=== PATIENT | female | born 1990 | race Two or more races ===

== ENCOUNTER 2021-01-14 21:40 | Observation (INO) | payer OTHER ==
[~2021-01-14] VITALS: Ht 157.5 cm; Wt 73.5 kg
[2021-01-14 22:00] VITALS: BP 119/60
== END 2021-01-14 23:00 | disposition home or self-care (01) ==
LOC: MLD 21:40
PROVIDERS: ADMIT Obstetrics & Gynecology; ATTEND Obstetrics & Gynecology
DX: O62.9 Abnormality of forces of labor, unspecified (principal); Z3A.00 Weeks of gestation of pregnancy not specified; Z53.29 Procedure and treatment not carried out because of patient's decision for other reasons
CPT/HCPCS: 59025; G0378; 81000

== ENCOUNTER 2021-01-31 10:16 | Observation (INO) | payer OTHER, SELFPAY ==
[~2021-01-31] VITALS: Ht 157.5 cm; Wt 74.8 kg
[2021-01-31 10:56] VITALS: BP 108/55
== END 2021-01-31 14:40 | disposition home or self-care (01) ==
LOC: MLD 10:16
PROVIDERS: ADMIT Obstetrics & Gynecology; ATTEND Obstetrics & Gynecology
DX: O47.1 False labor at or after 37 completed weeks of gestation (principal); Z20.822 Contact with and (suspected) exposure to COVID-19; Z3A.38 38 weeks gestation of pregnancy
CPT/HCPCS: 59025; 76805; 81000; 87426; G0378; Q0092; U0003

== ENCOUNTER 2021-02-03 15:36 | Inpatient (IN) | payer OTHER, SELFPAY ==
[~2021-02-03] VITALS: Ht 157.5 cm; Wt 75.3 kg
[2021-02-03] MEDS: LACTATED RINGERS 1,000 ML IV SCH (00:20)
[2021-02-03] MEDS ORDERED: PNV91TAB8 PO (16:29)
[2021-02-03] MEDS ORDERED: OXYTOCIN 10 UNITS/ML VIAL IM SCH (16:30)
[2021-02-03] MEDS ORDERED: LACTATED RINGERS 500 ML IV SCH (16:30)
[2021-02-03] MEDS ORDERED: PROMETHAZINE 25 MG/ML VIAL IVP PRN (16:30)
[2021-02-03] MEDS ORDERED: NALBUPHINE 10 MG/ML AMP IVP PRN (16:30)
[2021-02-03] MEDS ORDERED: MISOPROSTOL 25 MCG TAB VG SCH (16:30)
[2021-02-03] MEDS ORDERED: METHYLERGONOVINE 0.2 MG/ML AMP IM PRN (16:30)
[2021-02-03] MEDS ORDERED: CARBOPROST 250 MCG/ML AMP IM PRN (16:30)
[2021-02-03 18:59] LABS: BASOPHILS % (AUTO) 0.1 % (0.0-2.0); EOSINOPHILS % (AUTO) 0.1 % (0.0-4.0); HEMATOCRIT 38.8 % (36-48); HEMOGLOBIN 13.1 g/dL (12.0-16.0); LYMPHOCYTES # (AUTO) 1.5 K/uL (2.5-16.5); LYMPHOCYTES % (AUTO) 19.7 % (20.5-51.1); MEAN CORPUSCULAR HEMOGLOBIN 30 pg (27-31); MEAN CORPUSCULAR HGB CONC 34 g/dL (33-37); MEAN CORPUSCULAR VOLUME 87.5 fL (80-94); MONOCYTES # (AUTO) 0.5 K/uL (0.8-1.0); MONOCYTES % (AUTO) 6.5 % (1.7-9.3); NEUTROPHILS # (AUTO) 5.7 K/uL (1.8-7.7); NEUTROPHILS % (AUTO) 73.6 % (42.2-75.2); PLATELET COUNT (AUTO) 93 K/uL (140-450); RED BLOOD CELL COUNT(AUTO) 4.43 MIL/uL (4.20-5.40); RED CELL DISTRIBUTION WIDTH 15.5 % (11.6-13.7); WHITE BLOOD COUNT (AUTO) 7.8 K/uL (4.8-10.8)
[2021-02-03 19:17] LABS: APPEARANCE,URINE CLEAR (CLEAR); BILIRUBIN,URINE NEGATIVE (NEGATIVE); BLOOD, URINE NEGATIVE (NEGATIVE); COLOR,URINE YELLOW (YELLOW); LEUKOCYTE ESTERASE ,URINE NEGATIVE (NEGATIVE); NITRITE, URINE NEGATIVE (NEGATIVE); PH,URINE 5.5 (5.0-9.0); UGLUCOSE NEGATIVE (NEGATIVE)
[2021-02-03 19:37] LABS: ALBUMIN 3.1 g/dL (3.4-5.0); ANION GAP 15.7 (8-16); CARBON DIOXIDE 20.9 mmol/L (21-32); CREATININE 0.7 mg/dL (0.6-1.3); POTASSIUM 3.6 mmol/L (3.5-5.1); TOTAL BILIRUBIN 0.7 mg/dL (0.0-1.0)
[2021-02-04] MEDS ORDERED: ROPIVACAINE 0.2%/NS PREMIX 200 ML EPI ONE (04:12)
[2021-02-04] MEDS ORDERED: OXYTOCIN 20 UNITS/LR PREMIX 1,000 ML IV ONE (06:28)
--- NOTE | 2021-02-04 07:09 | NUR ---
PATIENT HAS BEEN SCREENED AND CATEGORIZED LOW NUTRITION RISK. PATIENT WILL BE SEEN WITHIN 7 DAYS OF ADMISSION. 02/09/21 PABLO HOOD MS, RDN
[2021-02-04] MEDS ORDERED: OXYTOCIN 20 UNITS in LACTATED RINGERS 1,000 ML IV SCH ×2 (07:35→12:30)
[2021-02-04] MEDS: LACTATED RINGERS 1,000 ML IV SCH (08:26)
[2021-02-04] MEDS ORDERED: BENZOCAINE/MENTHOL 20%-0.5% 60 GM CAN TP PRN (12:30)
[2021-02-04] MEDS ORDERED: MEASLES, MUMPS, AND RUBELLA 1 VIAL SQVAC ONE (12:30)
[2021-02-04] MEDS ORDERED: ACETAMINOPHEN 325 MG TAB PO PRN (12:30)
[2021-02-04] MEDS ORDERED: IBUPROFEN 600 MG TAB PO PRN (12:30)
[2021-02-04] MEDS ORDERED: MEASLES, MUMPS, AND RUBELLA 1 VIAL SQVAC PRN (12:40)
[2021-02-04] MEDS: bisacodyL 5 MG TABEC PO PRN (17:58)
[2021-02-04] MEDS: DOCUSATE SODIUM 100 MG GELCAP PO PRN (17:58)
[2021-02-05 09:42] LABS: BASOPHILS % (AUTO) 0.2 % (0.0-2.0); EOSINOPHILS % (AUTO) 0.1 % (0.0-4.0); HEMATOCRIT 34.9 % (36-48); HEMOGLOBIN 11.8 g/dL (12.0-16.0); LYMPHOCYTES # (AUTO) 1.1 K/uL (2.5-16.5); LYMPHOCYTES % (AUTO) 13.7 % (20.5-51.1); MEAN CORPUSCULAR HEMOGLOBIN 30 pg (27-31); MEAN CORPUSCULAR HGB CONC 34 g/dL (33-37); MEAN CORPUSCULAR VOLUME 88.9 fL (80-94); MONOCYTES # (AUTO) 0.2 K/uL (0.8-1.0); NEUTROPHILS # (AUTO) 6.7 K/uL (1.8-7.7); PLATELET COUNT (AUTO) 75 K/uL (140-450); RED BLOOD CELL COUNT(AUTO) 3.93 MIL/uL (4.20-5.40); RED CELL DISTRIBUTION WIDTH 15.8 % (11.6-13.7); WHITE BLOOD COUNT (AUTO) 8.1 K/uL (4.8-10.8)
[2021-02-06] MEDS: DOCUSATE SODIUM 100 MG GELCAP PO PRN (08:27)
[2021-02-06] MEDS: bisacodyL 5 MG TABEC PO PRN (08:27)
== END 2021-02-06 15:05 | disposition home or self-care (01) | DRG 560 ==
LOC: MLD 15:36 → MFCC 02-04 13:52
PROVIDERS: ADMIT Obstetrics & Gynecology; ATTEND Obstetrics & Gynecology
PROC: 10D07Z6 Extraction of Products of Conception, Vacuum, Via Natural or Artificial Opening (ICD-10-PCS; principal; 2021-02-04)
PROC: 3E0R3BZ Introduction of Anesthetic Agent into Spinal Canal, Percutaneous Approach (ICD-10-PCS; 2021-02-04)
PROC: 00HU33Z Insertion of Infusion Device into Spinal Canal, Percutaneous Approach (ICD-10-PCS; 2021-02-04)
PROC: 0W8NXZZ Division of Female Perineum, External Approach (ICD-10-PCS; 2021-02-04)
DX: O80 Encounter for full-term uncomplicated delivery (principal); Z37.0 Single live birth; Z3A.39 39 weeks gestation of pregnancy
CPT/HCPCS: 36415; 51702; 59070; 59200; 80053; 81003; 85025; 86592; 86886; 86900; 86901; 87521; 90715; J2300; J2550; J2590; J2795; J7120

== ENCOUNTER 2023-06-29 00:35 | Emergency (ER) | payer OTHER ==
[~2023-06-29 00:35] MED LIST: PNV91TAB8 PO
== END 2023-06-29 00:54 | disposition left against medical advice (07) ==
LOC: MED 00:35
DX: O26.891 Other specified pregnancy related conditions, first trimester (principal); Z3A.01 Less than 8 weeks gestation of pregnancy; Z53.21 Procedure and treatment not carried out due to patient leaving prior to being seen by health care provider